=== PATIENT | male | born 1980 | race Two or more races ===

== ENCOUNTER 2016-12-15 18:57 | Emergency (ER) | payer OTHER ==
[~2016-12-15] VITALS: Ht 185.4 cm; Wt 81.6 kg
[2016-12-15] MEDS ORDERED: IV NS 0.9% 1,000 ML ONE (20:53)
[2016-12-15] MEDS ORDERED: PANTOPRAZOLE 40 MG VIAL ONE (20:53)
[2016-12-15] MEDS ORDERED: ONDANSETRON HCL/PF 4 MG/2 ML VIAL ONE ×2 (20:53→22:36)
[2016-12-15] MEDS ORDERED: IV SET PRIMARY 1 EA INFUS.SET MC ONE (20:53)
[2016-12-15] MEDS ORDERED: LORAZEPAM INJ 2 MG/ML VIAL ONE (20:54)
[2016-12-15] MEDS ORDERED: PANTOPRAZOLE 40 MG VIAL IV ONE (21:00)
[2016-12-15] MEDS ORDERED: ONDANSETRON HCL/PF 4 MG/2 ML VIAL IVP ONE (21:00)
[2016-12-15] MEDS ORDERED: IV NS 0.9% 1,000 ML BAG IV ONE (21:00)
[2016-12-15] MEDS ORDERED: LORAZEPAM INJ 2 MG/ML VIAL IV ONE (21:00)
[2016-12-15 21:15] LABS: BASOPHILS % (AUTO) 0.2 % (0.0-2.0); DIFF TOTAL % 100 %; HEMATOCRIT 55 % (39-51); HEMOGLOBIN 18.3 g/dL (13.5-17.5); LYMPHOCYTES % (AUTO) 9.9 % (20.0-44.0); MEAN CORPUSCULAR HEMOGLOBIN 31 PG (26.0-33.0); MEAN CORPUSCULAR HGB CONC 33 g/dl (31.0-36.0); MEAN CORPUSCULAR VOLUME 94 fL (80-96); MONOCYTES # (AUTO) 0.1 /CMM (0.1-1.30); MONOCYTES % (AUTO) 1.4 % (2.0-12.0); NEUTROPHILS # (AUTO) 8.9 /CMM (1.8-8.9); NEUTROPHILS % (AUTO) 88.5 % (43.0-81.0); PLATELET COUNT (AUTO) 264 /CMM (150-450); RED BLOOD CELL COUNT(AUTO) 5.84 MIL/uL (4.5-6.0); WHITE BLOOD COUNT (AUTO) 10.1 K/uL (4.3-11.0)
[2016-12-15 21:19] LABS: CALCIUM, SERUM 8.9 mg/dL (8.5-10.1); CREATININE 0.7 mg/dL (0.6-1.3); POTASSIUM 3.3 mmol/L (3.5-5.1)
[2016-12-15 21:33] LABS: ALBUMIN 4.6 g/dL (3.4-5.0); BILIRUBIN,DIRECT 0.1 mg/dL (0.0-0.2); BILIRUBIN,TOTAL 0.5 mg/dL (0.2-1.0); INDIRECT BILIRUBIN 0.4 mg/dL (0.0-1.1); TOTAL PROTEIN, SERUM 8.1 g/dL (6.4-8.2)
[2016-12-15 21:36] LABS: ANISOCYTOSIS 1+; LYMPHOCYTES % (MANUAL) 10 % (16-48); PLATELET ESTIMATE ADEQUATE
[2016-12-15] MEDS ORDERED: ONDANSETRON HCL/PF 4 MG/2 ML VIAL IV ONE (23:00)
[2016-12-15 23:56] VITALS: BP 116/69
== END 2016-12-15 23:57 | disposition home or self-care (01) ==
LOC: ER 19:01
DX: F10.129 Alcohol abuse with intoxication, unspecified (principal); F10.239 Alcohol dependence with withdrawal, unspecified
CPT/HCPCS: 36415; 80048; 80076; 83690; 85025; 96361; 96374; 96375; 96376; 99284; A4606; C9113; J2060; J2405 ×2; J7030; Z7610

== ENCOUNTER 2017-02-03 04:18 | Emergency (ER) | payer MEDICAID, OTHER ==
[~2017-02-03] VITALS: Ht 177.8 cm; Wt 81.6 kg
--- NOTE | 2017-02-03 04:28 | NUR ---
BB RA 878; ETOH INTOXICATION, PT STATES " I DRANK TOO MUCH AND I DONT FEEL WELL" PT AOX3 RR EVEN AND UNLABORED. NO SOB NOTED. NAD NOTED. NO NVD AT THIS TIME. PT NOT DIAPHORETIC. PT WAITING FOR MD LINTON.
[2017-02-03] MEDS ORDERED: IV NS 0.9% 1,000 ML ONE (04:41)
[2017-02-03] MEDS ORDERED: IV SET PRIMARY 1 EA INFUS.SET MC ONE (04:41)
[2017-02-03] MEDS ORDERED: ONDANSETRON HCL/PF 4 MG/2 ML VIAL ONE (04:41)
[2017-02-03] MEDS ORDERED: ONDANSETRON HCL/PF 4 MG/2 ML VIAL IV ONE (05:00)
[2017-02-03] MEDS ORDERED: IV NS 0.9% 1,000 ML BAG IV ONE (05:00)
--- NOTE | 2017-02-03 07:13 | NUR ---
REPORT GIVEN TO HE ACEVEDO FOR [facility].
[2017-02-03] MEDS ORDERED: CHLORDIAZEPOXIDE HCL 25 MG CAPSULE ONE (07:39)
[2017-02-03 07:49] VITALS: BP 131/83
--- NOTE | 2017-02-03 07:49 | NUR ---
Patient discharged to home in stable condition. Written and verbal after care instructions given. Patient verbalizes understanding of instruction.
[2017-02-03] MEDS ORDERED: CHLORDIAZEPOXIDE HCL 25 MG CAPSULE PO ONE (08:00)
== END 2017-02-03 08:06 | disposition home or self-care (01) ==
LOC: ER 04:19
DX: F10.129 Alcohol abuse with intoxication, unspecified (principal)
CPT/HCPCS: 82962; 96361; 96374; 99284; A4606; J2405; J7030; Z7610

== ENCOUNTER 2017-07-29 17:06 | Emergency (ER) | payer OTHER ==
[~2017-07-29] VITALS: Ht 175.3 cm; Wt 90.7 kg
[2017-07-29 17:06] VITALS: BP 141/108
--- NOTE | 2017-07-29 19:33 | NUR ---
CALLED FAMILY AT [phone], SPOKE WITH SISTER IN LAW, SHE SAID SHE WILL CALL THE FATHER AND CALL ME BACK
--- NOTE | 2017-07-29 20:15 | NUR ---
PT FATHER FOR PT ASSISTANT CENTER DIRECTOR. IVHL D/C'D. PT D/C HOME IN STABLE CONDITION.
== END 2017-07-29 20:17 | disposition home or self-care (01) ==
LOC: ER 17:08
DX: F41.9 Anxiety disorder, unspecified (principal); F10.20 Alcohol dependence, uncomplicated
CPT/HCPCS: 96374; 99284; A4606; J2060; J2405; J7030; Z7610

== ENCOUNTER 2017-10-01 16:49 | Emergency (ER) | payer MEDICAID, OTHER ==
[~2017-10-01] VITALS: Ht 175.3 cm; Wt 81.6 kg
--- NOTE | 2017-10-01 16:52 | NUR ---
pt bib parent to er bed 14. here for anxiety. etoh. c/o abdominal pain. gowned and placed on monitor. stable vitals. awaiting md gonzales.
--- NOTE | 2017-10-01 17:51 | NUR ---
good velásquez at bedside for eval.
[2017-10-01] MEDS ORDERED: KETOROLAC TROMETHAMINE INJ 30 MG/ML VIAL IV ONE (18:00)
[2017-10-01] MEDS ORDERED: ONDANSETRON 4 MG TAB.RAPDIS SL ONE (18:00)
[2017-10-01] MEDS ORDERED: IV NS 0.9% 1,000 ML BAG IV ONE (18:00)
[2017-10-01] MEDS ORDERED: LORAZEPAM 1 MG TABLET PO ONE (18:00)
[2017-10-01] MEDS ORDERED: KETOROLAC TROMETHAMINE INJ 30 MG/ML VIAL ONE (18:20)
[2017-10-01] MEDS ORDERED: LORAZEPAM INJ 2 MG/ML VIAL ONE (18:21)
[2017-10-01] MEDS ORDERED: LORAZEPAM INJ 2 MG/ML VIAL IV ONE (18:30)
[2017-10-01 18:40] LABS: ALBUMIN 4.5 g/dL (3.4-5.0); BILIRUBIN,DIRECT 0.1 mg/dL (0.0-0.2); BILIRUBIN,TOTAL 0.8 mg/dL (0.2-1.0); CALCIUM, SERUM 9.4 mg/dL (8.5-10.1); CREATININE 0.7 mg/dL (0.6-1.3); POTASSIUM 3.6 mmol/L (3.5-5.1); TOTAL PROTEIN, SERUM 8.3 g/dL (6.4-8.2)
[2017-10-01 18:57] LABS: BASOPHILS # (AUTO) 0.1 /CMM (0.0-0.2); BASOPHILS % (AUTO) 0.5 % (0.0-2.0); EOSINOPHILS % (AUTO) 0.1 % (0.0-6.0); HEMATOCRIT 54 % (39-51); HEMOGLOBIN 18.4 g/dL (13.5-17.5); LYMPHOCYTES # (AUTO) 2.3 /CMM (0.8-4.8); LYMPHOCYTES % (AUTO) 22.3 % (20.0-44.0); MEAN CORPUSCULAR HEMOGLOBIN 32 PG (26.0-33.0); MEAN CORPUSCULAR HGB CONC 34 g/dl (31.0-36.0); MEAN CORPUSCULAR VOLUME 94 fL (80-96); MONOCYTES # (AUTO) 0.8 /CMM (0.1-1.30); MONOCYTES % (AUTO) 7.8 % (2.0-12.0); NEUTROPHILS # (AUTO) 7.3 /CMM (1.8-8.9); NEUTROPHILS % (AUTO) 69.3 % (43.0-81.0); PLATELET COUNT (AUTO) 279 /CMM (150-450); RDW COEFFICIENT OF VARIATION 12.6 (11.5-15.0); RED BLOOD CELL COUNT(AUTO) 5.73 MIL/uL (4.5-6.0); WHITE BLOOD COUNT (AUTO) 10.5 K/uL (4.3-11.0)
--- NOTE | 2017-10-01 20:22 | NUR ---
Patient discharged to home in stable condition. Written and verbal after care instructions given. Patient verbalizes understanding of instruction.IV removed. Catheter intact and site benign. Pressure and 4x4 applied to site. No bleeding noted.
[2017-10-01 20:23] VITALS: BP 132/60
[2017-10-01 22:14] LABS: LYMPHOCYTES % (MANUAL) 23 % (16-48); MONOCYTES % (MANUAL) 5 % (0-11.0); NEUTROPHILS % (MANUAL) 72 (42-76)
== END 2017-10-01 20:24 | disposition home or self-care (01) ==
LOC: ER 16:52 → MED 10-02 19:32 → UNDOADMIN 10-02 19:32
DX: F10.129 Alcohol abuse with intoxication, unspecified (principal); F41.9 Anxiety disorder, unspecified
CPT/HCPCS: 36415; 80048; 80076; 83690; 85025; 96374; 96375; 99284; A4606; J1885; J2060; J7030; Z7610

== ENCOUNTER 2018-03-20 07:50 | Emergency (ER) | payer OTHER ==
[~2018-03-20] VITALS: Ht 170.2 cm; Wt 74.8 kg
--- NOTE | 2018-03-20 08:09 | NUR ---
[id number] FROM FRIEND'S HOUSE: ETOH INTOXICATED. PT IS AMBULATORY WITH STEADY. VSS
[2018-03-20 08:40] VITALS: BP 132/80
--- NOTE | 2018-03-20 08:40 | NUR ---
Patient discharged to home in stable condition. Written and verbal after care instructions given. Patient verbalizes understanding of instruction.
== END 2018-03-20 08:41 | disposition home or self-care (01) ==
LOC: ER 07:54
DX: F10.229 Alcohol dependence with intoxication, unspecified (principal)
CPT/HCPCS: 99283; A4606; Z7610

== ENCOUNTER 2018-11-10 06:58 | Emergency (ER) | payer OTHER ==
[~2018-11-10] VITALS: Ht 167.6 cm; Wt 87.5 kg
--- NOTE | 2018-11-10 07:10 | NUR ---
PT BIB SELF, C/O "ABD PAIN SINCE YESTERDAY AFTER DRINKING ALCOHOL; WAS AT [facility] FOR SAME". ALERT AND ORIENTED X 4, VERBALLY RESPONSIVE AND ABLE TO MAKE NEEDS KNOWN. ON ROOM AIR, BREATHING EVENLY, AND UNLABORED. KEPT COMFORTABLE, WILL CONTINUE TO MONITOR ACCORDINGLY.
[2018-11-10] MEDS ORDERED: LORAZEPAM INJ 2 MG/ML VIAL IV ONE (07:30)
[2018-11-10] MEDS ORDERED: IV NS 0.9% 1,000 ML BAG IV ONE (07:30)
[2018-11-10] MEDS ORDERED: PANTOPRAZOLE 40 MG VIAL ONE (07:30)
[2018-11-10] MEDS ORDERED: PANTOPRAZOLE 40 MG VIAL IV ONE (07:30)
[2018-11-10] MEDS ORDERED: METOCLOPRAMIDE HCL 10 MG/2 ML VIAL ONE (07:30)
[2018-11-10] MEDS ORDERED: METOCLOPRAMIDE HCL 10 MG/2 ML VIAL IV ONE (07:30)
[2018-11-10] MEDS ORDERED: LORAZEPAM INJ 2 MG/ML VIAL ONE (07:31)
[2018-11-10 07:40] LABS: BASOPHILS % (AUTO) 0.2 % (0.0-2.0); EOSINOPHILS % (AUTO) 0.3 % (0.0-6.0); HEMATOCRIT 50 % (39-51); HEMOGLOBIN 16.7 g/dL (13.5-17.5); LYMPHOCYTES # (AUTO) 1.5 /CMM (0.8-4.8); LYMPHOCYTES % (AUTO) 44.3 % (20.0-44.0); MEAN CORPUSCULAR HGB CONC 34 g/dl (31.0-36.0); MEAN CORPUSCULAR VOLUME 100 fL (80-96); MONOCYTES # (AUTO) 0.2 /CMM (0.1-1.30); MONOCYTES % (AUTO) 7.5 % (2.0-12.0); NEUTROPHILS # (AUTO) 1.6 /CMM (1.8-8.9); NEUTROPHILS % (AUTO) 47.7 % (43.0-81.0); PLATELET COUNT (AUTO) 217 /CMM (150-450); RED BLOOD CELL COUNT(AUTO) 4.99 MIL/uL (4.5-6.0); WHITE BLOOD COUNT (AUTO) 3.3 K/uL (4.3-11.0)
--- NOTE | 2018-11-10 07:52 | NUR ---
URINE COLLECTED AND SENT TO LAB.
[2018-11-10 07:53] LABS: CALCIUM, SERUM 9.4 mg/dL (8.5-10.1); CREATININE 0.6 mg/dL (0.6-1.3); POTASSIUM 3.2 mmol/L (3.5-5.1)
[2018-11-10 07:58] LABS: ALBUMIN 3.8 g/dL (3.4-5.0); BILIRUBIN,DIRECT 0.2 mg/dL (0.0-0.2); BILIRUBIN,TOTAL 0.9 mg/dL (0.2-1.0); TOTAL PROTEIN, SERUM 7.2 g/dL (6.4-8.2)
[2018-11-10 08:01] LABS: APPEARANCE,URINE CLEAR (CLEAR); BILIRUBIN,URINE 1+ (NEGATIVE); BLOOD, URINE TRACE Ery/uL (NEGATIVE); KETONES,URINE 2+ (NEGATIVE); LEUKOCYTE ESTERASE ,URINE NEGATIVE (NEGATIVE); NITRITE, URINE NEGATIVE (NEGATIVE); PROTEIN,URINE NEGATIVE (NEGATIVE); UGLUCOSE NEGATIVE (NEGATIVE)
[2018-11-10] MEDS ORDERED: Magnesium 1GM/D5W 100ML PREMIX 100 ML IV STA (08:01)
[2018-11-10 08:04] LABS: COLOR,URINE DARK YELLOW (YELLOW)
[2018-11-10 08:06] LABS: BACTERIA,URINE Few /HPF (None Seen); RBC,URINE 0-2 /HPF (0-2); SQUAMOUS EPITHELIAL CELL,UR Rare /HPF (None Seen); WBC,URINE 0-2 /HPF (0-3)
[2018-11-10 08:07] LABS: MUCUS,URINE Few /LPF (None Seen)
[2018-11-10] MEDS ORDERED: Magnesium 1GM/D5W 100ML PREMIX 200 ML IV ONE (08:07)
[2018-11-10] MEDS ORDERED: POTASSIUM CHLORIDE 20 MEQ TAB.PRT.SR PO ONE ×2 (08:08→08:30)
--- NOTE | 2018-11-10 08:13 | NUR ---
COLLECTIONS SPECIALIST AT BEDSIDE.
[2018-11-10 09:20] VITALS: BP 132/80
== END 2018-11-10 09:21 | disposition home or self-care (01) ==
LOC: ER 06:59
DX: R10.9 Unspecified abdominal pain (principal); F10.10 Alcohol abuse, uncomplicated; G89.29 Other chronic pain; R00.0 Tachycardia, unspecified; Y90.5 Blood alcohol level of 100-119 mg/100 ml; Z76.5 Malingerer [conscious simulation]
CPT/HCPCS: 36415; 76705; 80048; 80076; 81001; 83690; 85025; 96365; 96375; 99284; A4216; A4606; C9113; G0480; J2060; J2765; J3475; J7030; Z7610; 81000-TC

== ENCOUNTER 2023-09-17 09:47 | Emergency (ER) | payer MEDICAID, OTHER ==
[~2023-09-17] VITALS: Ht 167.6 cm; Wt 93.0 kg
[2023-09-17 14:08] VITALS: BP 125/88; TEMP 97.9; O2SAT 100
== END 2023-09-17 14:08 | disposition home or self-care (01) ==
LOC: ER 09:50
DX: F10.229 Alcohol dependence with intoxication, unspecified (principal); Y90.9 Presence of alcohol in blood, level not specified